=== PATIENT | female | born 1995 | race Caucasian/White ===

== ENCOUNTER 2018-07-29 12:06 | Emergency (ER) | payer SELFPAY ==
[2018-07-29] MEDS ORDERED: Metoprolol Tartrate TAB* 25 MG PO ONE (12:28)
[2018-07-29] MEDS ORDERED: Metoprolol Tartrate IV* 1 MG/ML 5 ML VIAL IV ONE (12:50)
[2018-07-29] MEDS ORDERED: Metoprolol Tartrate IV* 1 MG/ML 5 ML VIAL ONE (12:50)
--- NOTE | 2018-07-29 12:52 | RAD ---
Indication: Palpitations. Single frontal view of the chest performed at 1247 hours was reviewed. No prior study is available for comparison. No mediastinal shift is noted. Heart is of normal size and configuration. Lung ashraf appear clear. IMPRESSION: NO ACTIVE CARDIOPULMONARY DISEASE IS NOTED.
[2018-07-29 13:01] LABS: ABS Basophils 0 10^3/ul (0-0.2); ABS Eosinophils 0.1 10^3/ul (0-0.6); ABS Lymphocytes 1.6 10^3/ul (1.0-4.8); ABS Monocytes 0.3 10^3/ul (0-0.8); ABS Neutrophils 4.2 10^3/ul (1.5-7.7); ABS Nucleated RBC 0 10^3/ul; Hematocrit 41 % (35-47); Hemoglobin 14.1 g/dl (12.0-16.0); Lymphocyte % 25.7 % (25-47); Mean Corpuscular HGB Conc 34 g/dl (31-36); Mean Corpuscular Hemoglobin 29 pg (27-31); Mean Corpuscular Volume 86 fL (80-97); Mean Platelet Volume 7.6 um3 (7.4-10.4); Nucleated Red Blood Cells % 0.2; Platelet Count 324 10^3/ul (150-450); Red Blood Count 4.84 10^6/ul (4.00-5.40); Red Cell Distribution Width 13 % (10.5-15); White Blood Count 6.3 10^3/ul (3.5-10.8)
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
[2018-07-29 13:20] LABS: EGFR Non-African American 102.3 (>60); Urine Appearance Clear; Urine Blood Negative (Negative); Urine Color Yellow; Urine Ketones Negative (Negative); Urine Protein Negative (Negative); Urine Red Blood Cell Trace(0-2/hpf) (Absent); Urine Specific Gravity 1.009 (1.010-1.030); Urine Urobilinogen Negative (Negative); Urine White Blood Cell Trace(0-5/hpf) (Absent)
[2018-07-29] MEDS ORDERED: NS 0.9% 1000 ML* 1,000 ML IV ONE (13:35)
[2018-07-29 14:38] VITALS: BP 112/69
--- NOTE | 2018-07-29 22:08 | CONS ---
CC: [facility], Anthony Walter, [facility] * CARDIOLOGY CONSULTATION: DATE OF CONSULT: 07/29/18 INDICATION FOR CONSULTATION: Supraventricular tachycardia. HISTORY OF PRESENT ILLNESS: The patient is a 23-year-old female with a history of anxiety and supraventricular tachycardia. The patient states that she has had episodes of palpitations and SVT for quite some time. Usually, it occurs a couple times a week. It lasts just a few seconds and then resolves on its own. The patient has had some cardiology workup in the past, which has been benign. The patient is under increased stress this ester at [employer] and has noticed more palpitations recently. This morning, she had an episode of SVT that was continuous. The patient went to [facility] and was referred to the emergency room. On arrival to the emergency room, she had a heart rate of 170 beats per minute with an SVT. The patient was given a cold water bath, which broke her to normal sinus rhythm; however, she returned to the SVT quite quickly. Ultimately, the patient was given 5 mg of Lopressor IV and was able to stay in normal sinus rhythm. The patient states when she is in SVT, she notices the palpitations. She has never had any episodes of chest pain, never had any episodes of lightheadedness , dizziness or syncope. CURRENT MEDICATIONS: None. ALLERGIES: None. FAMILY HISTORY: No family history of early coronary artery disease. 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 Occasional alcohol. No tobacco use. No illicit drug use. She exercises regularly. REVIEW OF SYSTEMS: Negative for fevers or chills. Negative for changes in bowel or bladder habits. Negative for change in weight. All other 12-point review is unremarkable. PHYSICAL EXAM: Height is 5 feet 4 inches, weight is 130 pounds. Temperature is 97.8; heart rate initially 171, when I saw her, heart rate was 82; blood pressure 109/80; respiratory rate is 17. Carotids are 2+ without bruits. JVD is normal. Thyroid is normal. Cardiac Exam: S1, S2 without any murmurs, rubs, or gallops. PMI is normal. Lungs are clear to auscultation bilaterally with no dullness to percussion. Abdomen is soft, nontender, nondistended with normoactive bowel sounds. Extremities show no edema. She has 2+ pulses throughout. The patient is awake, alert, and oriented. She moves all 4 extremities equally. LABORATORY STUDIES: Chemistries within normal limits. BUN and creatinine normal. TSH is normal. CBC within normal limits. IMPRESSION AND PLAN: This is a 23-year-old female with a history of supraventricular tachycardia, who had a prolonged episode of supraventricular tachycardia. The patient originally went to [facility] where she was transported to the emergency room. On arrival to the emergency room, she was given a cold water bath, which broke her to normal sinus rhythm; however, she returned to the supraventricular tachycardia. Ultimately, the patient was given Lopressor IV 5 mg and was able to stay in normal sinus rhythm. For now, my recommendation is the patient to be discharged from the hospital on Lopressor 12.5 mg b.i.d. The patient can follow up in my office if she has further questions. The patient did ask questions about ablation therapy. I talked to her about the risks and benefits of this. She states it is something she may pursue at a later date. [id number]/[facility] #: [id number] HERON
== END 2018-07-29 14:36 | disposition home or self-care (01) ==
LOC: ED 12:06
DX: I47.1 Supraventricular tachycardia (principal)
CPT/HCPCS: 36415; 71045; 80053; 81003; 81015; 83735; 84443; 85025; 87086; 93005; 96361; 96374; 99283; J3490

== ENCOUNTER 2019-04-10 19:56 | Emergency (ER) | payer OTHER ==
[2019-04-10 20:14] VITALS: BP 103/59
--- NOTE | 2019-04-10 20:44 | UC ---
Throat Pain/Nasal Kemal HPI - HPI Summary HPI Summary: 24-year-old female presents with onset of general malaise, fatigue, ear pain, sore throat, and nausea yesterday. States had one episode of vomiting today. Has been able to tolerate fluids with no further episodes of vomiting since that time. Denies fever, chills, nasal congestion, runny nose, dysphagia, chest pain, palpitations, shortness of breath, cough, abdominal pain, diarrhea, dysuria, frequency, urgency, or hematuria. Denies concern for as she is on continuous control and has not missed any doses. - History of Current Complaint Chief Complaint: UCRespiratory Stated Complaint: NAUSEA, FEVER, AND SORE THROAT Time Seen by Provider: 04/10/19 20:25 Hx Obtained From: Patient Hx Last Menstrual Period: control Pain Intensity: 10 - Allergies/Home Medications Allergies/Adverse Reactions: Allergies Allergy/AdvReac Type Severity Reaction Status Date / Time No Known Allergies Allergy Verified 04/10/19 20:14 PMH/Surg Hx/FS Hx/Imm Hx Previously Healthy: Yes Cardiovascular History: Other - SVT Psychological History: Depression - Surgical History Surgical History: None - Family History Known Family History: Positive: Other - FMHx of anxiety - Social History Occupation: Student Lives: With Family Alcohol Use: None Substance Use Type: None Smoking Status (MU): Never Smoked Tobacco Review of Systems All Other Systems Reviewed And Are Negative: Yes Constitutional: Positive: Fatigue. Negative: Fever, Chills Skin: Negative: Rash Eyes: Negative: Drainage, Eye Redness ENT: Positive: Sore Throat, Ear Ache. Negative: Nasal Discharge, Sinus Congestion, Sinus Pain/Tenderness Respiratory: Negative: Shortness Of Breath, Cough Cardiovascular: Negative: Palpitations, Chest Pain Gastrointestinal: Positive: Vomiting, Nausea. Negative: Abdominal Pain, Diarrhea Genitourinary: Negative: Dysuria, Hematuria, Frequency, Urgency, Vaginal/Penile Discharge Musculoskeletal: Positive: Myalgia Neurological: Positive: Headache. Negative: Weakness, Paresthesia, Numbness Is Patient Immunocompromised?: No Physical Exam - Summary Physical Exam Summary: GENERAL APPEARANCE: Well developed, well nourished, alert and cooperative, and appears to be in no acute distress. EYES: Conjunctiva clear. No drainage. EARS: External auditory canals and tympanic membranes clear, hearing grossly intact. NOSE: No nasal discharge. THROAT: Mild pharyngeal erythema. No tonsilar inflammation, swelling, exudate, or lesions. Uvula midline. Oral cavity normal. Teeth and gingiva in good general condition. NECK: Neck supple, non-tender without lymphadenopathy. CARDIAC: Normal S1 and S2. No S3, S4 or murmurs. Rhythm is regular. There is no peripheral edema, cyanosis or pallor. Extremities are warm and well perfused. Capillary refill is less than 2 seconds. Peripheral pulses intact. LUNGS: Clear to auscultation without rales, rhonchi, wheezing or diminished breath sounds. ABDOMEN: Positive bowel sounds. Soft, nondistended, nontender. No guarding or rebound. No masses or hepatosplenomegally. No CVA tenderness. MUSKULOSKELETAL: ROM intact to all extremities. No joint erythema or tenderness. Normal muscular development. Normal gait. SKIN: Skin normal color, texture and turgor with no lesions or eruptions. Triage Information Reviewed: Yes Vital Signs: Initial Vital Signs Temp 98 F 04/10/19 20:09 Pulse 91 04/10/19 20:09 Resp 16 04/10/19 20:09 BP 103/59 04/10/19 20:09 Pulse Ox 98 04/10/19 20:09 Vital Signs Reviewed: Yes Throat Pain/Nasal Course/Dx - Course Course Of Treatment: 24-year-old female presents with onset of general malaise, fatigue, ear pain, sore throat, and nausea yesterday. States had one episode of vomiting today. Has been able to tolerate fluids with no further episodes of vomiting since that time. Denies fever, chills, nasal congestion, runny nose, dysphagia, chest pain, palpitations, shortness of breath, cough, abdominal pain, diarrhea, dysuria, frequency, urgency, or hematuria. Denies concern for as she is on continuous control and has not missed any doses. Afebrile. Vital signs stable. Patient had some mild pharyngeal erythema otherwise unremarkable exam. Rapid strep test was negative. Reviewed the results with the patient. Suspect that she probably has a viral syndrome and I'm recommending that she continue with symptomatic treatment. Patient was offered prescription to help with nausea but declines at this time. She is to return here or follow up with her primary care provider in 5-7 days if symptoms do not improve. Anticipatory guidance warning symptoms reviewed with the patient verbalizes understanding and agrees with plan of care. - Differential Dx/Diagnosis Differential Diagnosis/HQI/PQRI: Mononucleosis, Otitis Media, Pharyngitis, Sinusitis, Tonsillitis, URI Provider Diagnosis: Viral syndrome Discharge - Sign-Out/Discharge Documenting (check all that apply): Patient Departure All imaging exams completed and their final reports reviewed: No Studies - Discharge Plan Condition: Stable Disposition: HOME Patient Education Materials: Viral Syndrome (ED) Referrals: No Primary Care Phys,NOPCP [Primary Care Provider] - [facility] [Outside] Additional Instructions: Your rapid strep test in the clinic today was negative. Your symptoms are likely from a viral infection. Viral infections do not respond to antibiotics and are limited to the treatment of symptoms. Viral infections typically run their course in 7-10 days. Drink plenty of fluids to avoid dehydration especially if you are running any fever. Use salt water gargles several times a day. Take over the counter acetaminophen (Tylenol) or ibuprofen (Advil, Motrin) according to directions as needed for pain or fever. You may also use Chloraseptic spray or Cepacol lonzenges according to directions which contain a numbing medication and can provide some temporary relief from your sore throat. Return here or follow up with your primary care provider in 5-7 days if symptoms persist. I have given you the contact information for the [facility] physician referral service if you need assistance with establishing with a primary care provider. Seek immediate medical attention in the emergency room if you have fever greater than 100.5 F despite taking acetaminophen or ibuprofen, are unable to swallow or develop drooling, are unable to open your mouth fully, are unable to eat or drink, have pain that is not relieved with over the counter pain medication, have any difficulty breathing, have severe abdominal pain, persist vomiting, or any worsening of symptoms. - Billing Disposition and Condition Condition: STABLE Disposition: Home
== END 2019-04-10 21:15 | disposition home or self-care (01) ==
LOC: UCEAST 19:56
DX: B34.9 Viral infection, unspecified (principal); R53.83 Other fatigue; R53.81 Other malaise; H92.09 Otalgia, unspecified ear; J02.9 Acute pharyngitis, unspecified; R11.2 Nausea with vomiting, unspecified
CPT/HCPCS: 87651; 99211; G0463

== ENCOUNTER 2019-12-18 08:51 | Emergency (ER) | payer OTHER ==
[2019-12-18 09:03] VITALS: BP 104/64
--- NOTE | 2019-12-18 09:34 | UC ---
Respiratory Complaint HPI - HPI Summary HPI Summary: CHIEF COMPLAINT: COUGH HPI: This is a healthy 24 y/o female with a non-productive cough for the last week, worse in the last 2 days; no chest pain except when coughing; no blood production; no shortness of breath. Hx of asthma. VITAL SIGNS REVIEWED. Within normal limits unless noted here. NURSES NOTE REVIEWED. "seen at [facility] last week now coughing to point of vomiting and increased resp difficulty" - History of Current Complaint Chief Complaint: UCGeneralIllness Stated Complaint: COUGH Time Seen by Provider: 12/18/19 09:25 Hx Last Menstrual Period: bcp Pain Intensity: 8 - Allergies/Home Medications Allergies/Adverse Reactions: Allergies Allergy/AdvReac Type Severity Reaction Status Date / Time No Known Allergies Allergy Verified 12/18/19 09:04 PMH/Surg Hx/FS Hx/Imm Hx - Additional Past Medical History Additional PMH: PAST MEDICAL HISTORY- denies significant illness or surgery. CHRONIC and RECURRENT HEALTH PROBLEM LIST REVIEWED. Information relevant to present complaint: SVT; asthma. VISIT HISTORY REVIEWED. MEDICATIONS & ALLERGIES REVIEWED. HYPERTENSION STATUS: FAMILY HISTORY: Positive for: , diabetes, Patient denies family history of: hypertension, cardiovascular disease, stroke, cancer. SOCIAL HISTORY: Smoker: no Home: alone Employment: student studying animal science Previously Healthy: Yes - Surgical History Surgical History: None - Family History Known Family History: Positive: Other - FMHx of anxiety - Social History Alcohol Use: None Substance Use Type: None Smoking Status (MU): Never Smoked Tobacco Review of Systems All Other Systems Reviewed And Are Negative: Yes Constitutional: Positive: Chills Skin: Positive: Negative Respiratory: Positive: Cough - getting worse over the past 3 days Cardiovascular: Positive: Negative Gastrointestinal: Positive: Negative Genitourinary: Positive: Negative Is Patient Immunocompromised?: No Physical Exam - Summary Physical Exam Summary: Appearance: The patient is well-appearing, is in no pain or distress, and is well-nourished. Eyes: Conjunctiva are clear. Pupils are equal and reactive to light and accommodation. Extra ocular muscle movement is intact. ENT: The hearing is grossly normal, the pharynx is normal, and the TMs are normal. There is no muffled or hoarse voice. No stridor. Neck: The neck is supple and there is no lymphadenopathy. Respiratory: The chest is non-tender to palpation and without crepitus. Examination of the lungs shows an extended expiratory phase bilaterally with some scattered wheezing. There are rare rhonchi. There are no rales. There is no respiratory distress or use of the accessory muscles. Cardiovascular: Heart sounds reveal a regular rate and rhythm. There are no clicks, rubs or murmurs. There are no carotid bruits or thrills. Circulation is grossly intact. Abdomen: The abdomen is soft and nontender. There is no organomegaly. Bowel sounds are present and within normal limits. No point tenderness at McBurneys point. No CVA tenderness. Musculoskeletal: Strength is intact. The patient moves all extremities. Neurological: The patient is alert. Motor and sensory are examination grossly intact. Speech is normal. Psychological: The patient displays age appropriate behavior, and is conversant. GCS=15. Skin: Negative for rashes. Triage Information Reviewed: Yes Vital Signs: Initial Vital Signs Temp 98.8 F 12/18/19 09:00 Pulse 91 12/18/19 09:00 Resp 18 12/18/19 09:00 BP 104/64 12/18/19 09:00 Pulse Ox 99 12/18/19 09:00 Vital Signs Reviewed: Yes Respiratory Course/Dx - Course Course Of Treatment: healthy 24 year old with non-productive but spasmodic and intermittent cough for 7+ days, worse in the last 2 days. No continuous chest pain or fever. Hx is positive for asthma. Physical examination reveals extended expiratory phase and wheezes. Diagnosis is bronchitis with bronchospasm. Patient will be treated with albuterol, dexamethasone and spacer as well as symptomatic measures. Patient knows to follow up for increased shortness of breath, fever or pain. - Differential Dx/Diagnosis Differential Diagnosis/HQI/PQRI: Asthma, Bronchitis, Lower Resp Infection Provider Diagnosis: Bronchospasm with bronchitis, acute Discharge ED - Sign-Out/Discharge Documenting (check all that apply): Patient Departure All imaging exams completed and their final reports reviewed: No Studies - Discharge Plan Condition: Stable Disposition: HOME Prescriptions: Albuterol HFA INHALER* [Ventolin HFA Inhaler*] 1 - 2 puff INH Q4H #1 mdi MDD 8 Dexamethasone TAB* [Decadron TAB*] 4 mg PO DAILY #4 tab MDD 2 Inhaler, Assist Devices [Aerochamber Mv] 1 mis XX Q6HR #1 mis MDD 8 puffs a day Patient Education Materials: Acute Bronchitis (ED), Bronchospasm (ED) Forms: *Work Release Referrals: No Primary Care Phys,NOPCP [Primary Care Provider] - Additional Instructions: WE DISCUSSED: re-check for any chest pain, increasing shortness of breath, new cough or fever and chills. PLEASE SEEK CARE AT THE EMERGENCY DEPARTMENT IF SYMPTOMS WORSEN OR IF NEW SYMPTOMS DEVELOP. FOLLOW UP WITH YOUR PRIMARY CARE PHYSICIAN IF CONDITION CONTINUES BEYOND 3 DAYS WITHOUT IMPROVEMENT. YOUR DIAGNOSIS IS: Bronchitis with bronchospasm YOUR PRESCRIPTION RECOMMENDATION IS: Dexamethasone for 2 days; albuterol inhaler and spacer, 2 puffs 3-4 times a day. OTHER INSTRUCTIONS: Drink lots of warm fluids; standing the shower; use steam or vaporizer. Rest and stay hydrated. I've given you a work note for 4 days off. FOR PAIN AND/OR SLEEP: For pain: Ibuprofen (Motrin and other brand names) 400-600mg PLUS acetaminophen (Tylenol and other brand names) 500mg - 1000mg every 8 hours. - Billing Disposition and Condition Condition: STABLE Disposition: Home
[2019-12-18] MEDS ORDERED: Albuterol/Ipratropium NEB.SOL* Albuterol 2.5 MG/Ipratropium 0.5 MG 3 ML INH ONE (09:37)
== END 2019-12-18 10:20 | disposition home or self-care (01) ==
LOC: UCEAST 08:51
DX: J20.9 Acute bronchitis, unspecified (principal); J45.909 Unspecified asthma, uncomplicated
CPT/HCPCS: 99212; A9270-GY; G0463